=== PATIENT | female | born 1945 | race Caucasian/White ===

== ENCOUNTER 2021-02-24 15:50 | Emergency (ER) | payer OTHER, MEDICARE ==
[~2021-02-24] VITALS: Ht 152.4 cm; Wt 70.5 kg
[2021-02-24 16:20] VITALS: BP 116/70
[2021-02-24] MEDS ORDERED: acetaminophen 325mg tablet PO ONE (17:25)
[2021-02-24] MEDS ORDERED: HYDR-3965 PO (19:23)
[2021-02-24] MEDS ORDERED: HYDROcodone/acetaminophen 5mg/325mg tablet PO ONE (19:45)
== END 2021-02-24 19:39 | disposition left against medical advice (07) ==
LOC: ER 15:51
DX: S72.402A Unspecified fracture of lower end of left femur, initial encounter for closed fracture (principal); S82.142A Displaced bicondylar fracture of left tibia, initial encounter for closed fracture; M25.562 Pain in left knee; Z79.899 Other long term (current) drug therapy; W19.XXXA Unspecified fall, initial encounter; Y93.89 Activity, other specified; Y92.89 Other specified places as the place of occurrence of the external cause; Y99.8 Other external cause status
CPT/HCPCS: 73564; 99283

== ENCOUNTER 2021-02-27 14:26 | Inpatient (IN) | payer MEDICARE, OTHER ==
[~2021-02-27] VITALS: Ht 152.4 cm; Wt 72.7 kg
[~2021-02-27 14:26] MED LIST: HYDR-3965 PO
[2021-02-27 15:03] LABS: BASOPHILS % (AUTO) 0.6 % (0-1); EOSINOPHILS # (AUTO) 0.1 X10'3 (0-0.9); EOSINOPHILS % (AUTO) 2.8 % (0-6); HEMOGLOBIN 11.3 g/dl (12.0-16.0); MEAN CORPUSCULAR HEMOGLOBIN 31.7 PG (27.0-31.0); MEAN CORPUSCULAR HGB CONC 33.3 g/dL (33.0-36.5); MEAN CORPUSCULAR VOLUME 95.2 FL (78-98); MEAN PLATELET VOLUME 8.8 FL (7.4-10.4); MONOCYTES # (AUTO) 0.4 X10'3 (0-0.9); MONOCYTES % (AUTO) 8.2 % (2-12); NEUTROPHILS # (AUTO) 3.3 X10'3 (1.8-7.7); NEUTROPHILS % (AUTO) 67.4 % (42-75); PLATELET COUNT 245 X10'3 (140-440); RED BLOOD COUNT 3.57 X10'6 (4.20-5.60); RED CELL DISTRIBUTION WIDTH 16.2 % (11.5-14.5)
[2021-02-27] MEDS ORDERED: HYDROcodone/acetaminophen 10/325mg tab PO ONE (15:10)
[2021-02-27] MEDS ORDERED: ondansetron 4mg rapidly disintigrating tab PO ONE (15:10)
[2021-02-27 15:19] LABS: ALANINE AMINOTRANSFERASE 27 U/L (12-78); ALBUMIN 2.8 G/DL (3.4-5.0); ALBUMIN/GLOBULIN RATIO 0.8 (1.1-1.5); ALKALINE PHOSPHATASE 88 IU/L (46-116); ANION GAP 10 (8-16); ASPARTATE AMINO TRANSFERASE 19 U/L (10-37); BILIRUBIN,TOTAL 0.5 MG/DL (0.1-1.0); BLOOD UREA NITROGEN 24 MG/DL (7-18); CALCIUM 8.7 MG/DL (8.5-10.1); CHLORIDE 108 MMOL/L (99-107); GLUCOSE 100 MG/DL (70-104); POTASSIUM 4.1 MMOL/L (3.5-5.1); SODIUM 143 MMOL/L (135-145); TOTAL CARBON DIOXIDE 24.9 MMOL/L (24-32); TOTAL PROTEIN 6.2 G/DL (6.4-8.2); eGFR 44 ML/MIN
[2021-02-27] MEDS ORDERED: LIDOcaine 2% 10ml TOPICAL JELLY (Urojet) TP ONE (17:55)
[2021-02-27] MEDS ORDERED: magnesium hydroxide 30ml (MOM) UD suspension PO PRN (18:25)
[2021-02-27] MEDS ORDERED: ondansetron/PF 4mg/2ml inj IV PRN (18:25)
[2021-02-27] MEDS ORDERED: acetaminophen 325mg tablet PO PRN (18:25)
[2021-02-27] MEDS ORDERED: potassium Cl 20 mEq SR tablet PO PRN ×2 (18:25)
[2021-02-27] MEDS ORDERED: mag hydrox/Alum hydrox/simeth 30ml oral suspension PO PRN (18:25)
[2021-02-27] MEDS ORDERED: potassium Cl 40MEQ/1/2NS 520ml 520 ML IV PRN ×2 (18:25)
[2021-02-27] MEDS: normal saline 1000ml 1,000 ML IV SCH (19:12)
[2021-02-27] MEDS: morphine 2 MG/ML inj. syringe IV PRN (19:26)
[2021-02-27] MEDS: K and/or MAG REPLACEMENT MC SCH (19:27)
[2021-02-27] MEDS: docusate sod 100mg capsule PO SCH (20:12)
[2021-02-27] MEDS ORDERED: HYDR-3965 PO (23:00)
[2021-02-28] VITALS (12 sets, daily range): BP systolic 86–111; BP diastolic 35–62
--- NOTE | 2021-02-28 00:04 | NUR ---
Received ED report from Kristopher GALLO, had the opportunity to ask questions about the patient and review patient's chart
[2021-02-28] MEDS: morphine 2 MG/ML inj. syringe IV PRN ×3 (00:13→13:55)
[2021-02-28] MEDS: HYDROcodone/acetaminophen 5mg/325mg tablet PO PRN ×3 (01:33→12:43)
[2021-02-28 06:15] LABS: BASOPHILS % (AUTO) 0.7 % (0-1); EOSINOPHILS # (AUTO) 0.1 X10'3 (0-0.9); EOSINOPHILS % (AUTO) 2.5 % (0-6); HEMATOCRIT 29.7 % (35.0-45.0); HEMOGLOBIN 9.9 g/dl (12.0-16.0); LYMPHOCYTES # (AUTO) 1.1 X10'3 (1.1-4.8); LYMPHOCYTES % (AUTO) 32.2 % (21-51); MEAN CORPUSCULAR HEMOGLOBIN 31.7 PG (27.0-31.0); MEAN CORPUSCULAR HGB CONC 33.3 g/dL (33.0-36.5); MEAN CORPUSCULAR VOLUME 95.2 FL (78-98); MEAN PLATELET VOLUME 8.5 FL (7.4-10.4); MONOCYTES # (AUTO) 0.3 X10'3 (0-0.9); MONOCYTES % (AUTO) 8.5 % (2-12); NEUTROPHILS # (AUTO) 1.8 X10'3 (1.8-7.7); NEUTROPHILS % (AUTO) 56.1 % (42-75); PLATELET COUNT 192 X10'3 (140-440); RED BLOOD COUNT 3.12 X10'6 (4.20-5.60); RED CELL DISTRIBUTION WIDTH 16.2 % (11.5-14.5); WHITE BLOOD COUNT 3.3 X10'3 (4.5-11.0)
[2021-02-28 06:33] LABS: ALANINE AMINOTRANSFERASE 21 U/L (12-78); ALBUMIN 2.3 G/DL (3.4-5.0); ALBUMIN/GLOBULIN RATIO 0.8 (1.1-1.5); ALKALINE PHOSPHATASE 82 IU/L (46-116); ANION GAP 6 (8-16); ASPARTATE AMINO TRANSFERASE 16 U/L (10-37); BILIRUBIN,TOTAL 0.5 MG/DL (0.1-1.0); BLOOD UREA NITROGEN 24 MG/DL (7-18); BUN/CREATININE RATIO 26.4 (6.6-38.0); CALCIUM 8.8 MG/DL (8.5-10.1); CHLORIDE 110 MMOL/L (99-107); CREATININE 0.91 MG/DL (0.40-0.90); GLUCOSE 88 MG/DL (70-104); POTASSIUM 3.9 MMOL/L (3.5-5.1); SODIUM 143 MMOL/L (135-145); TOTAL CARBON DIOXIDE 26.7 MMOL/L (24-32); TOTAL PROTEIN 5.2 G/DL (6.4-8.2); eGFR 60 ML/MIN
--- NOTE | 2021-02-28 07:06 | NUR ---
Patient in room [facility]. I have received report from SABINO Pérez and had the opportunity to ask questions and assume patient care.
--- NOTE | 2021-02-28 07:14 | NUR ---
Problems reprioritized. Patient report given, questions answered & plan of care reviewed with Chinyere GALLO.
[2021-02-28] MEDS: K and/or MAG REPLACEMENT MC SCH ×2 (08:00→20:00)
[2021-02-28] MEDS: docusate sod 100mg capsule PO SCH ×2 (08:30→22:37)
[2021-02-28] MEDS: normal saline 1000ml 1,000 ML IV SCH ×2 (11:05→12:55)
[2021-02-28] MEDS ORDERED: ROPI1TAB6 PO (11:13)
[2021-02-28] MEDS ORDERED: CYCL5TAB PO (11:13)
[2021-02-28] MEDS ORDERED: OXYC-138 PO (11:41)
--- NOTE | 2021-02-28 13:46 | NUR ---
PAGER ID: [phone] MESSAGE: [id number]- Tonya Weeks- pt c/o RLS. has requip restarted BID but does not start until tonight. Ok to give a dose now? Thank you- Chinyere [phone]
[2021-02-28] MEDS ORDERED: ROPINIRole 1mg tablet PO ONE (14:45)
--- NOTE | 2021-02-28 18:37 | NUR ---
Problems reprioritized. Patient report given, questions answered & plan of care reviewed with SABINO Anderson.
[2021-02-28] MEDS ORDERED: meperidine/PF 25mg/ml syringe IV PRN ×3 (19:55)
[2021-02-28] MEDS ORDERED: ondansetron/PF 4mg/2ml inj IV PRN (19:55)
[2021-02-28] MEDS ORDERED: morphine 4 MG/ML inj SYRINge IV PRN (19:55)
[2021-02-28] MEDS ORDERED: proCHLORperazine 10 MG/2 ml inj IV PRN (19:55)
[2021-02-28] MEDS ORDERED: ringers solution, lacted 1,000 ML IV SCH (19:55)
[2021-02-28] MEDS ORDERED: morphine 2 MG/ML inj. syringe IV PRN (19:55)
[2021-02-28] MEDS ORDERED: midazolam 1 mg/ML 2ml injection ONE (20:14)
[2021-02-28] MEDS ORDERED: fentaNYL/PF 50MCG/1 ML 2ML syringe ONE (20:14)
[2021-02-28] MEDS ORDERED: ceFAZolin 1000mg inj ONE ×2 (20:30)
[2021-02-28] MEDS ORDERED: ePHEDrine 50MG/ML INJ. ONE (20:30)
--- NOTE | 2021-02-28 21:13 | NUR ---
Received from OR via ORTHO BED , accompanied by Anesthesiologist BETZAIDA and report given by Anesthesiolgist. PATIENT WITH 20G PIV IN RIGHT UE RUNNING LRA T 100. DENIES PAIN AT THIS TIME. PATIENT WITH IMMOBILIZER TO LEFT KNEE. ISLAND DRESSING IS CDI AT THIS TIME. + POSTERIOR TIBIALIS ON DOPPLER. MARKED SPOT. LIMA CATHETER PRESENT WITH DARK URINE IN ATRIUM. Addendum: 02/28/21 at 2124 by Marck Sapp RN, RN Amended: Links added.
[2021-02-28] MEDS: ROPINIRole 1mg tablet PO SCH (22:37)
[2021-03-01] VITALS (8 sets, daily range): BP systolic 93–131; BP diastolic 56–75
[2021-03-01] MEDS: HYDROcodone/acetaminophen 5mg/325mg tablet PO PRN ×5 (04:18→23:11)
[2021-03-01] MEDS: morphine 2 MG/ML inj. syringe IV PRN ×3 (06:26→16:35)
[2021-03-01 06:36] LABS: BASOPHILS % (AUTO) 0.4 % (0-1); EOSINOPHILS # (AUTO) 0.1 X10'3 (0-0.9); EOSINOPHILS % (AUTO) 1.7 % (0-6); HEMATOCRIT 31.3 % (35.0-45.0); HEMOGLOBIN 10.4 g/dl (12.0-16.0); LYMPHOCYTES # (AUTO) 0.6 X10'3 (1.1-4.8); LYMPHOCYTES % (AUTO) 16.9 % (21-51); MEAN CORPUSCULAR HEMOGLOBIN 31.9 PG (27.0-31.0); MEAN CORPUSCULAR HGB CONC 33.2 g/dL (33.0-36.5); MEAN PLATELET VOLUME 9.7 FL (7.4-10.4); MONOCYTES # (AUTO) 0.3 X10'3 (0-0.9); MONOCYTES % (AUTO) 8.9 % (2-12); NEUTROPHILS # (AUTO) 2.6 X10'3 (1.8-7.7); NEUTROPHILS % (AUTO) 72.1 % (42-75); PLATELET COUNT 231 X10'3 (140-440); RED BLOOD COUNT 3.26 X10'6 (4.20-5.60); RED CELL DISTRIBUTION WIDTH 16.5 % (11.5-14.5); WHITE BLOOD COUNT 3.7 X10'3 (4.5-11.0)
--- NOTE | 2021-03-01 07:14 | NUR ---
Patient in room [facility]. I have received report from BERKLEY GALLO and had the opportunity to ask questions and assume patient care.
[2021-03-01] MEDS: K and/or MAG REPLACEMENT MC SCH ×2 (08:00→19:18)
[2021-03-01 08:45] LABS: ALANINE AMINOTRANSFERASE 20 U/L (12-78); ALBUMIN 2.3 G/DL (3.4-5.0); ALBUMIN/GLOBULIN RATIO 0.7 (1.1-1.5); ALKALINE PHOSPHATASE 92 IU/L (46-116); ANION GAP 9 (8-16); ASPARTATE AMINO TRANSFERASE 24 U/L (10-37); BILIRUBIN,TOTAL 0.4 MG/DL (0.1-1.0); BLOOD UREA NITROGEN 19 MG/DL (7-18); BUN/CREATININE RATIO 27.1 (6.6-38.0); CALCIUM 8.9 MG/DL (8.5-10.1); CHLORIDE 109 MMOL/L (99-107); GLUCOSE 86 MG/DL (70-104); POTASSIUM 3.9 MMOL/L (3.5-5.1); SODIUM 139 MMOL/L (135-145); TOTAL CARBON DIOXIDE 21.4 MMOL/L (24-32); TOTAL PROTEIN 5.5 G/DL (6.4-8.2); eGFR 82 ML/MIN
[2021-03-01] MEDS: docusate sod 100mg capsule PO SCH ×2 (08:58→19:08)
[2021-03-01] MEDS: ROPINIRole 1mg tablet PO SCH ×2 (08:59→19:08)
--- NOTE | 2021-03-01 11:01 | NUR ---
Pt stating she wants to leave AMA. pt highly encouraged to stay. risks of leaving ama discussed with patient. will continue to monitor patient closely
--- NOTE | 2021-03-01 11:48 | NUR ---
pt refusing repositioning and to wear immobilizer at this time.
[2021-03-01] MEDS: normal saline 1000ml 1,000 ML IV SCH (12:30)
--- NOTE | 2021-03-01 13:56 | NUR ---
Patient continue to refuse knee immobilizer and repositioning. will continue to encourage compliacme
--- NOTE | 2021-03-01 18:52 | NUR ---
Problems reprioritized. Patient report given, questions answered & plan of care reviewed with anthony lewis.
[2021-03-02] VITALS: BP 129/78
[2021-03-02] MEDS: HYDROcodone/acetaminophen 5mg/325mg tablet PO PRN (05:43)
[2021-03-02] MEDS: morphine 2 MG/ML inj. syringe IV PRN (05:54)
[2021-03-02 06:33] LABS: BASOPHILS % (AUTO) 0.7 % (0-1); EOSINOPHILS # (AUTO) 0.1 X10'3 (0-0.9); EOSINOPHILS % (AUTO) 2.1 % (0-6); HEMATOCRIT 32.2 % (35.0-45.0); HEMOGLOBIN 10.7 g/dl (12.0-16.0); LYMPHOCYTES # (AUTO) 0.7 X10'3 (1.1-4.8); LYMPHOCYTES % (AUTO) 18.8 % (21-51); MEAN CORPUSCULAR HEMOGLOBIN 32.3 PG (27.0-31.0); MEAN CORPUSCULAR HGB CONC 33.2 g/dL (33.0-36.5); MEAN CORPUSCULAR VOLUME 97.3 FL (78-98); MEAN PLATELET VOLUME 8.4 FL (7.4-10.4); MONOCYTES # (AUTO) 0.3 X10'3 (0-0.9); MONOCYTES % (AUTO) 9.4 % (2-12); NEUTROPHILS # (AUTO) 2.6 X10'3 (1.8-7.7); PLATELET COUNT 209 X10'3 (140-440); RED BLOOD COUNT 3.31 X10'6 (4.20-5.60); RED CELL DISTRIBUTION WIDTH 16.2 % (11.5-14.5); WHITE BLOOD COUNT 3.7 X10'3 (4.5-11.0)
[2021-03-02 07:03] LABS: ALANINE AMINOTRANSFERASE 19 U/L (12-78); ALBUMIN 2.4 G/DL (3.4-5.0); ALBUMIN/GLOBULIN RATIO 0.7 (1.1-1.5); ALKALINE PHOSPHATASE 94 IU/L (46-116); ANION GAP 12 (8-16); BILIRUBIN,TOTAL 0.6 MG/DL (0.1-1.0); BLOOD UREA NITROGEN 13 MG/DL (7-18); BUN/CREATININE RATIO 23.2 (6.6-38.0); CALCIUM 9.3 MG/DL (8.5-10.1); CHLORIDE 109 MMOL/L (99-107); CREATININE 0.56 MG/DL (0.40-0.90); GLUCOSE 84 MG/DL (70-104); SODIUM 141 MMOL/L (135-145); TOTAL CARBON DIOXIDE 20.3 MMOL/L (24-32); TOTAL PROTEIN 5.9 G/DL (6.4-8.2); eGFR > 90 ML/MIN
[2021-03-02 07:08] LABS: ASPARTATE AMINO TRANSFERASE 27 U/L (10-37); POTASSIUM 4.6 MMOL/L (3.5-5.1)
[2021-03-02 08:00] VITALS: BP 123/64
[2021-03-02] MEDS: K and/or MAG REPLACEMENT MC SCH (08:00)
[2021-03-02] MEDS: normal saline 1000ml 1,000 ML IV SCH (08:48)
[2021-03-02] MEDS: docusate sod 100mg capsule PO SCH (08:49)
[2021-03-02] MEDS: ROPINIRole 1mg tablet PO SCH (08:49)
[2021-03-02] MEDS ORDERED: magnesium hydroxide 30ml (MOM) UD suspension PO PRN (10:30)
[2021-03-02] MEDS ORDERED: HYDROcodone/acetaminophen 5mg/325mg tablet PO PRN (10:30)
[2021-03-02 11:00] VITALS: BP 141/75
[2021-03-02 15:45] VITALS: BP 137/71
--- NOTE | 2021-03-02 18:52 | NUR ---
Problems reprioritized. Patient report given, questions answered & plan of care reviewed with anthony lewis.
--- NOTE | 2021-03-04 07:46 | NUR ---
Patient called in looking for pain medication I referred patient to call Dr Goode office phone number for office given.
== END 2021-03-02 18:45 | disposition home or self-care (01) | DRG 480 ==
LOC: ER 14:26 → ED HOLD 18:28 → SUR 3N 23:36
PROVIDERS: ADMIT Internal Medicine; ATTEND Internal Medicine
PROC: 0QSC34Z Reposition Left Lower Femur with Internal Fixation Device, Percutaneous Approach (ICD-10-PCS; principal; 2021-02-28 20:04)
DX: S72.432A Displaced fracture of medial condyle of left femur, initial encounter for closed fracture (principal); N17.0 Acute kidney failure with tubular necrosis; M62.838 Other muscle spasm; M17.12 Unilateral primary osteoarthritis, left knee; Z20.822 Contact with and (suspected) exposure to COVID-19; G25.81 Restless legs syndrome; W06.XXXA Fall from bed, initial encounter; Y93.89 Activity, other specified; Y92.89 Other specified places as the place of occurrence of the external cause; Z90.710 Acquired absence of both cervix and uterus; Y99.8 Other external cause status
CPT/HCPCS: 36415; 73552; 73564; 73700; 76000; 80053; 85025; 85610; 87081; 87635; 97110; 97162; 97530; 99283; 99285; A4618; A6258; A7000; C1713; G0378; J0690; J2250; J2270; J3010; J7030; J7120